=== PATIENT | female | born 1995 | race Caucasian/White ===

== ENCOUNTER 2018-06-23 11:35 | Inpatient (IN) | payer OTHER ==
[~2018-06-23] VITALS: Ht 162.6 cm; Wt 72.6 kg
[2018-06-23] MEDS ORDERED: RINGERS SOLUTION,LACTATED 1,000 ML IV PRN (12:32)
[2018-06-23] MEDS ORDERED: AMPICILLIN SODIUM 2 GM/NS 100 ML IV ONE ×2 (12:33→13:00)
[2018-06-23] MEDS ORDERED: RINGERS SOLUTION,LACTATED 1,000 ML IV ONE (12:33)
[2018-06-23] MEDS ORDERED: OXYTOCIN 30 UNITS/LACT RINGERS 500 ML IV ONE (12:39)
[2018-06-23] MEDS ORDERED: LIDOCAINE/PF 1% 30 ML VIAL INJ PRN (12:45)
[2018-06-23] MEDS ORDERED: CITRIC ACID/SODIUM CITRATE 30 ML SOLUTION UDCUP PO PRN (12:45)
[2018-06-23] MEDS ORDERED: FentaNYL CITRATE-PF 100 MCG/2 ML VIAL IVP PRN (12:45)
[2018-06-23] MEDS ORDERED: METOCLOPRAMIDE HCL 5 MG/ML 2 ML VIAL IVP PRN (12:45)
[2018-06-23 12:47] VITALS: BP 112/74
[2018-06-23] MEDS ORDERED: PREN1TAB80 PO (12:50)
[2018-06-23] MEDS ORDERED: CALC-1038 PO (12:50)
[2018-06-23] MEDS: RINGERS SOLUTION,LACTATED 1,000 ML IV SCH ×2 (12:52→19:47)
[2018-06-23 13:31] LABS: BASOPHILS % (AUTO) 0.2 % (0.0-2.0); EOSINOPHILS % (AUTO) 3.9 % (1.0-6.0); HEMATOCRIT 38.1 % (36-46); LYMPHOCYTES # (AUTO) 1.3 K/uL (1.0-4.8); LYMPHOCYTES % (AUTO) 13.4 % (22.0-44.0); MEAN CORPUSCULAR VOLUME 94 fL (80-100); MONOCYTES # (AUTO) 0.7 K/uL (0.1-1.0); MONOCYTES % (AUTO) 6.8 % (2.0-9.0); NEUTROPHILS # (AUTO) 7.4 K/uL (1.8-7.7); NEUTROPHILS % (AUTO) 75.7 % (40.0-70.0); PLATELET COUNT (AUTO)-OB 151 K/uL (150-450); RED BLOOD CELL COUNT(AUTO) 4.05 MIL/uL (4.00-5.20); RED CELL DISTRIBUTION WIDTH 14.6 % (11.5-14.5)
[2018-06-23 14:18] LABS: APPEARANCE,URINE CLOUDY (CLEAR); BILIRUBIN,URINE NEGATIVE (NEGATIVE); GLUCOSE, URINE (UA) NEGATIVE (NEGATIVE); KETONES,URINE NEGATIVE (NEGATIVE); LEUKOCYTE ESTERASE ,URINE SMALL (NEGATIVE); NITRATE,URINE NEGATIVE (NEGATIVE); OCCULT BLOOD,URINE SMALL (NEGATIVE); PROTEIN,URINE NEGATIVE (NEGATIVE); UROBILINOGEN,URINE 0.2 mg/dL (<=1.0)
[2018-06-23 14:22] LABS: BACTERIA,URINE Many /HPF (None Seen); SQUAMOUS EPITHELIAL CELL,UR Many /LPF (None Seen)
[2018-06-23] MEDS ORDERED: OXYTOCIN 30 UNITS/LACT RINGERS 500 ML IV PRN (14:35)
[2018-06-23 16:33] LABS: RUBELLA SCREEN (IGG) IMMUNE (IMMUNE)
[2018-06-23] MEDS: AMPICILLIN SODIUM 1 GM/NS 50 ML IV SCH ×2 (17:29→21:16)
[2018-06-23] MEDS ORDERED: ROPIVACAINE HCL/PF 0.2% 100 ML ED ONE (17:48)
[2018-06-23] MEDS ORDERED: ROPIVACAINE HCL/PF 0.2% 100 ML ED PRN (18:15)
[2018-06-23] MEDS ORDERED: ONDANSETRON HCL 4 MG/2 ML VIAL IVP PRN (18:15)
[2018-06-23] MEDS ORDERED: DiphenhydrAMINE HCL 50 MG/ML VIAL IVP PRN (18:15)
[2018-06-23] MEDS ORDERED: OXYGEN THERAPY IH SCH (20:00)
[2018-06-23] MEDS ORDERED: MINERAL OIL 30 ML UDCUP PO ONE (21:15)
[2018-06-24] MEDS ORDERED: GENTAMICIN 120 MG/NACL ISO-OSM 100 ML IV ONE (00:30)
[2018-06-24] MEDS ORDERED: ACETAMINOPHEN 325 MG TABLET PO ONE (01:00)
[2018-06-24] MEDS ORDERED: OXYTOCIN 30 UNITS/LACT RINGERS 500 ML IV ONE (02:36)
[2018-06-24] MEDS ORDERED: LANOLIN 7 GM OINTMENT TP PRN (02:45)
[2018-06-24] MEDS ORDERED: BENZOCAINE 20%/MENTHOL 56 GM SPRAY CANISTER TP PRN (02:45)
[2018-06-24] MEDS ORDERED: LIDOCAINE/PF 1% 30 ML VIAL INJ PRN (02:45)
[2018-06-24] MEDS ORDERED: GLYCERIN/WITCH HAZEL LEAF 40 PADS JAR TP PRN (02:45)
[2018-06-24] MEDS ORDERED: OxyCODONE HCL/ACETAMINOPHEN 5-325 MG TABLET PO PRN ×2 (02:45)
[2018-06-24] MEDS: AMPICILLIN SODIUM 1 GM/NS 50 ML IV SCH ×6 (05:34→21:11)
[2018-06-24] MEDS: GENTAMICIN 80 MG/NACL ISO-OSM 50 ML IV SCH ×2 (08:40→16:28)
[2018-06-24] MEDS: MAGNESIUM HYDROXIDE SUSPENSION 30 ML UDCUP PO PRN ×2 (08:41→21:11)
[2018-06-24] MEDS: IBUPROFEN 800 MG TABLET PO PRN (08:41)
[2018-06-24] MEDS ORDERED: RINGERS SOLUTION,LACTATED 1,000 ML IV ONE (12:30)
[2018-06-25] MEDS: GENTAMICIN 80 MG/NACL ISO-OSM 50 ML IV SCH (00:45)
[2018-06-25] MEDS: AMPICILLIN SODIUM 1 GM/NS 50 ML IV SCH (01:34)
[2018-06-25] MEDS: IBUPROFEN 800 MG TABLET PO PRN (01:48)
[2018-06-25 06:36] LABS: BASOPHILS % (AUTO) 0.1 % (0.0-2.0); EOSINOPHILS % (AUTO) 4.5 % (1.0-6.0); HEMATOCRIT 34.8 % (36-46); HEMOGLOBIN 11.8 g/dL (12.0-16.0); LYMPHOCYTES # (AUTO) 2.1 K/uL (1.0-4.8); LYMPHOCYTES % (AUTO) 13.6 % (22.0-44.0); MEAN CORPUSCULAR HEMOGLOBIN 32.4 pg (26.0-34.0); MEAN CORPUSCULAR HGB CONC 33.8 G/dL (31.0-37.0); MEAN CORPUSCULAR VOLUME 96 fL (80-100); MONOCYTES # (AUTO) 0.9 K/uL (0.1-1.0); MONOCYTES % (AUTO) 5.8 % (2.0-9.0); NEUTROPHILS # (AUTO) 11.9 K/uL (1.8-7.7); PLATELET COUNT (AUTO)-OB 154 K/uL (150-450); RED BLOOD CELL COUNT(AUTO) 3.62 MIL/uL (4.00-5.20); RED CELL DISTRIBUTION WIDTH 14.4 % (11.5-14.5)
== END 2018-06-25 12:55 | disposition home or self-care (01) | DRG 807 ==
LOC: UNDOADMOB 11:35 → 4S 11:35 → INTOOBSV 12:38 → OBSVTOIN 12:38 → UNDODISIN 06-25 12:55
PROVIDERS: ADMIT Obstetrics & Gynecology; ATTEND Obstetrics & Gynecology
PROC: 10E0XZZ Delivery of Products of Conception, External Approach (ICD-10-PCS; principal; 2018-06-23)
PROC: 0KQM0ZZ Repair Perineum Muscle, Open Approach (ICD-10-PCS; 2018-06-23)
PROC: 3E0R3BZ Introduction of Anesthetic Agent into Spinal Canal, Percutaneous Approach (ICD-10-PCS; 2018-06-23)
PROC: 00HU33Z Insertion of Infusion Device into Spinal Canal, Percutaneous Approach (ICD-10-PCS; 2018-06-23)
DX: O77.0 Labor and delivery complicated by meconium in amniotic fluid (principal); Z37.0 Single live birth; O70.1 Second degree perineal laceration during delivery; Z3A.39 39 weeks gestation of pregnancy; O69.81X0 Labor and delivery complicated by cord around neck, without compression, not applicable or unspecified
CPT/HCPCS: 76811; 80307; 86592; 86762; 86850; 86900; 86901; 87086; 87340; 87491; 87591; 99219; J0290; J1580; J2590; J2795; J7120